=== PATIENT | female | born 1960 | race Caucasian/White ===

== ENCOUNTER 2017-04-24 10:50 | Outpatient (CLI) | payer OTHER | END 2017-04-24 10:51 | disposition home or self-care (01) | LOC: BICCT 10:50 | PROVIDERS: ATTEND Family Medicine | DX: G44.52 New daily persistent headache (NDPH) (principal); H57.11 Ocular pain, right eye; H53.9 Unspecified visual disturbance; M79.601 Pain in right arm; R20.2 Paresthesia of skin; R90.89 Other abnormal findings on diagnostic imaging of central nervous system | CPT/HCPCS: 70450 ==